=== PATIENT | female | born 1930 | race Caucasian/White ===

== ENCOUNTER → 2017-04-23 | Outpatient (CLI) | payer MEDICARE, BC ==
--- NOTE | 2017-04-23 16:01 | NM ---
EXAMINATION TYPE: NM bone scan whole body DATE OF EXAM: 04/23/2017 COMPARISON: Outside lumbar radiographs 04/18/2017 HISTORY: 86-year-old female with low back pain. Technique: Delayed whole-body scanning was performed following the injection of 25.5 mCi Tc 99m MDP. Images acquired 3 hours post injection. FINDINGS: There is tqmw-vj-pcdxscsi increased uptake involving the L1, L2, L3, and L4 vertebral bodies best see n on the posterior projections. Some focal increased activity involving the left posterior elements w ithin the upper cervical spine. There is a levoconvex scoliosis of the lumbar spine. No suspicious ac cumulation of radiotracer to suggest osseous metastatic disease. IMPRESSION: There is somx-tk-xywkzeca increased activity involving the L1, L2, L3, and L4 vertebral bodies sugges ting probable subacute compression injuries.
== END | disposition home or self-care (01) ==
LOC: RADNMMAIN 10:55
PROVIDERS: ATTEND Physical Medicine & Rehabilitation
DX: M48.8X6 Other specified spondylopathies, lumbar region (principal)
CPT/HCPCS: 78306; A9503

== ENCOUNTER → 2017-04-24 | Outpatient (CLI) | payer MEDICARE, BC ==
--- NOTE | 2017-04-24 08:19 | US ---
EXAMINATION TYPE: US duplex aorta DATE OF EXAM: 04/24/2017 COMPARISON: NONE CLINICAL HISTORY: I70.0 Atherosclerosis of aorta. Patient stated is a smoker and has been constipated for 8 days. EXAM MEASUREMENTS: Abdominal Aorta: primarily scanned aorta with patient in RLD position Proximal: 2.4cm Transverse Mid: 2.6cm Transverse Distal: 2.3cm A/P Bifurcation: not seen due to overlying bowel gas with history of recent constipation Aorta size is wnl, but intimal wall thickening is noted throughout. There is atheromatous irregularity of the aorta but no aneurysm is seen. IMPRESSION: NO EVIDENCE OF ABDOMINAL AORTIC ANEURYSM AT THIS TIME.
== END ==
LOC: RADUSWWP 07:03
PROVIDERS: ATTEND Family Medicine
DX: I70.0 Atherosclerosis of aorta (principal)
CPT/HCPCS: 93979

== ENCOUNTER 2018-04-02 14:14 | Observation (INO) | payer BC, MEDICARE ==
[2018-04-02] MEDS ORDERED: NITROGLYCERIN OINT 1 INCH/GM PACKET TOPICAL STA (14:33)
[2018-04-02] MEDS ORDERED: ASPIRIN 81 MG PO STA (14:33)
--- NOTE | 2018-04-02 14:36 | ED ---
General Adult HPI - General Chief complaint: Chest Pain Stated complaint: Heartburn/dizzy Time Seen by Provider: 04/02/18 14:15 Source: patient, RN notes reviewed Mode of arrival: wheelchair Limitations: no limitations - History of Present Illness Initial comments: This is a 87-year-old female presents emergency Department complaining of chest pain difficult to chest pain she felt 20 years ago when she had a heart attack and angioplasty. Patient states the pain came on and she became short of breath and diaphoretic. Patient also states she was somewhat dizzy. Patient denies any nausea. Patient denies any radiation of the pain. Patient denies any abdominal pain patient denies any vomiting or diarrhea. Patient denies any recent fever chills or cough. Patient denies headache patient denies numbness weakness. Patient denies any lightheadedness dizziness or near syncopal episode. - Related Data Home Medications Medication Instructions Recorded Confirmed Acetaminophen [Tylenol] 500 mg PO Q4-6H PRN 04/02/18 04/02/18 Aspirin EC [Ecotrin Low Dose] 81 mg PO DAILY 04/02/18 04/02/18 Atorvastatin [Lipitor] 80 mg PO DAILY 04/02/18 04/02/18 Fluticasone/Salmeterol [Advair 1 inhalation PO BID 04/02/18 04/02/18 500-50 Diskus] Furosemide [Lasix] 40 mg PO DAILY 04/02/18 04/02/18 Halobetasol Propionate 1 applic TOPICAL BID PRN 04/02/18 04/02/18 Levothyroxine Sodium [Synthroid] 112 mcg PO DAILY 04/02/18 04/02/18 Losartan Potassium 100 mg PO DAILY 04/02/18 04/02/18 Potassium Chloride [Klor-Con 10 meq PO DAILY 04/02/18 04/02/18 Sprinkle] Allergies Allergy/AdvReac Type Severity Reaction Status Date / Time cephalexin [From Keflex] Allergy Unknown Verified 04/02/18 15:01 Review of Systems ROS Statement: Those systems with pertinent positive or pertinent negative responses have been documented in the HPI. ROS Other: All systems not noted in ROS Statement are negative. Past Medical History Past Medical History: Cancer, Heart Failure, COPD, Myocardial Infarction ([place]), Osteoarthritis (OA) Additional Past Medical History / Comment(s): compression fractures thyroid ca History of Any Multi-Drug Resistant Organisms: None Reported Past Surgical History: Heart Catheterization, Heart Catheterization With Stent Additional Past Surgical History / Comment(s): thyroidectomy Past Psychological History: No Psychological Hx Reported Smoking Status: Current every day smoker Past Alcohol Use History: None Reported, Rare Past Drug Use History: None Reported General Exam - General Exam Comments Initial Comments: GENERAL: Patient is well-developed and well-nourished. Patient is nontoxic and well- hydrated and is in mild distress. ENT: Neck is soft and supple. No significant lymphadenopathy is noted. Oropharynx is clear. Moist mucous membranes. Neck has full range of motion without eliciting any pain. EYES: The sclera were anicteric and conjunctiva were pink and moist. Extraocular movements were intact and pupils were equal round and reactive to light. Eyelids were unremarkable. PULMONARY: Unlabored respirations. Good breath sounds bilaterally. No audible rales rhonchi or wheezing was noted. CARDIOVASCULAR: There is a regular rate and rhythm without any murmurs gallops or rubs. ABDOMEN: Soft and nontender with normal bowel sounds. No palpable organomegaly was noted. There is no palpable pulsatile mass. SKIN: Skin is clear with no lesions or rashes and otherwise unremarkable. NEUROLOGIC: Patient is alert and oriented x3. Cranial nerves II through XII are grossly intact. Motor and sensory are also intact. Normal speech, volume and content. Symmetrical smile. MUSCULOSKELETAL: Normal extremities with adequate strength and full range of motion. No lower extremity swelling or edema. No calf tenderness. LYMPHATICS: No significant lymphadenopathy is noted PSYCHIATRIC: Normal psychiatric evaluation. Normal interpersonal interactions appears functionally intact in deals appropriately with others. No signs of depression. No signs of anxiety. Limitations: no limitations Course Vital Signs 04/02/18 04/02/18 14:17 15:56 Temperature 97.9 F Pulse Rate 64 73 Respiratory 18 16 Rate Blood Pressure 162/75 134/61 O2 Sat by Pulse 92 L 97 Oximetry Medical Decision Making - Medical Decision Making EKG shows a normal sinus rhythm at 63 bpm IN interval is 168 QRSs 80 QT interval is 454 QTC is 464. Patient's EKG shows no ST segment elevation or depression or T wave abnormalities are noted Chest x-ray shows no acute abnormality. Patient was given heparin because of the unstable angina picture the similarities to her previous heart attack. I spoke with Dr. Mcclure and she agreed to admit the patient admitted the patient I continued heparin and aspirin and Nitropaste on the floor. I consult to cardiology and I wrote admitting orders. - Lab Data Result diagrams: 04/02/18 14:43 04/02/18 14:43 Lab Results 04/02/18 04/02/18 04/02/18 Range/Units 14:43 14:43 14:43 WBC 9.1 (3.8-10.6) k/uL RBC 4.60 (3.80-5.40) m/uL Hgb 10.9 L (11.4-16.0) gm/dL Hct 36.0 (34.0-46.0) % MCV 78.2 L (80.0-100.0) fL MCH 23.8 L (25.0-35.0) pg MCHC 30.4 L (31.0-37.0) g/dL RDW 16.8 H (11.5-15.5) % Plt Count 309 (150-450) k/uL Neutrophils % 86 % Lymphocytes % 8 % Monocytes % 4 % Eosinophils % 1 % Basophils % 0 % Neutrophils # 7.9 H (1.3-7.7) k/uL Lymphocytes # 0.7 L (1.0-4.8) k/uL Monocytes # 0.3 (0-1.0) k/uL Eosinophils # 0.1 (0-0.7) k/uL Basophils # 0.0 (0-0.2) k/uL Hypochromasia Marked Anisocytosis Slight Microcytosis Slight PT (9.0-12.0) sec INR (<1.2) APTT (22.0-30.0) sec Sodium 138 (137-145) mmol/L Potassium 4.0 (3.5-5.1) mmol/L Chloride 100 (98-107) mmol/L Carbon Dioxide 27 (22-30) mmol/L Anion Gap 11 mmol/L BUN 16 (7-17) mg/dL Creatinine 0.64 (0.52-1.04) mg/dL Est GFR (CKD-EPI)AfAm >90 (>60 ml/min/1.73 sqM) Est GFR (CKD-EPI)NonAf 81 (>60 ml/min/1.73 sqM) Glucose 110 H (74-99) mg/dL Calcium 8.7 (8.4-10.2) mg/dL Magnesium 2.1 (1.6-2.3) mg/dL Total Bilirubin 0.8 (0.2-1.3) mg/dL AST 43 H (14-36) U/L ALT 38 (9-52) U/L Alkaline Phosphatase 68 (38-126) U/L Total Creatine Kinase 71 (30-135) U/L CK-MB (CK-2) 1.9 (0.0-2.4) ng/mL CK-MB (CK-2) Rel Index 2.7 Troponin I <0.012 (0.000-0.034) ng/mL Total Protein 6.8 (6.3-8.2) g/dL Albumin 4.1 (3.5-5.0) g/dL /04/14 Range/Units 14:43 WBC (3.8-10.6) k/uL RBC (3.80-5.40) m/uL Hgb (11.4-16.0) gm/dL Hct (34.0-46.0) % MCV (80.0-100.0) fL MCH (25.0-35.0) pg MCHC (31.0-37.0) g/dL RDW (11.5-15.5) % Plt Count (150-450) k/uL Neutrophils % % Lymphocytes % % Monocytes % % Eosinophils % % Basophils % % Neutrophils # (1.3-7.7) k/uL Lymphocytes # (1.0-4.8) k/uL Monocytes # (0-1.0) k/uL Eosinophils # (0-0.7) k/uL Basophils # (0-0.2) k/uL Hypochromasia Anisocytosis Microcytosis PT 11.2 (9.0-12.0) sec INR 1.2 H (<1.2) APTT 22.1 (22.0-30.0) sec Sodium (137-145) mmol/L Potassium (3.5-5.1) mmol/L Chloride (98-107) mmol/L Carbon Dioxide (22-30) mmol/L Anion Gap mmol/L BUN (7-17) mg/dL Creatinine (0.52-1.04) mg/dL Est GFR (CKD-EPI)AfAm (>60 ml/min/1.73 sqM) Est GFR (CKD-EPI)NonAf (>60 ml/min/1.73 sqM) Glucose (74-99) mg/dL Calcium (8.4-10.2) mg/dL Magnesium (1.6-2.3) mg/dL Total Bilirubin (0.2-1.3) mg/dL AST (14-36) U/L ALT (9-52) U/L Alkaline Phosphatase (38-126) U/L Total Creatine Kinase (30-135) U/L CK-MB (CK-2) (0.0-2.4) ng/mL CK-MB (CK-2) Rel Index Troponin I (0.000-0.034) ng/mL Total Protein (6.3-8.2) g/dL Albumin (3.5-5.0) g/dL Critical Care Time Critical Care Time: Yes Total Critical Care Time: 35 Disposition Clinical Impression: Unstable angina pectoris Disposition: ADMITTED IP TO THIS HOSP Referrals: Winston Spring MD [Primary Care Provider] - 1-2 days Time of Disposition: 16:02
--- NOTE | 2018-04-02 15:03 | XR ---
EXAMINATION TYPE: XR chest 2V DATE OF EXAM: 04/02/2018 COMPARISON: NONE HISTORY: Shortness of breath TECHNIQUE: Frontal and lateral views of the chest are obtained. FINDINGS: Scattered senescent parenchymal changes noted. Hyperinflation compatible with COPD. No evidence for infiltrate. No evidence for atelectasis. Heart size is stable. Mediastinal structures are stable and grossly unremarkable. Small fixed hiatal hernia. No evidence for hilar prominence. Degenerative changes dorsal spine. IMPRESSION: 1. No evidence for acute pulmonary disease.
[2018-04-02 15:05] LABS: Anisocytosis Slight; Basophils % (A) 0 %; Eosinophils # (A) 0.1 k/uL (0-0.7); Eosinophils % (A) 1 %; HGB 10.9 gm/dL (11.4-16.0); Hypochromasia Marked; Lymphocytes # (A) 0.7 k/uL (1.0-4.8); Lymphocytes % (A) 8 %; MCH 23.8 pg (25.0-35.0); MCHC 30.4 g/dL (31.0-37.0); MCV 78.2 fL (80.0-100.0); Mean Platelet Volume 7.6; Microcytosis Slight; Monocytes # (A) 0.3 k/uL (0-1.0); Monocytes % (A) 4 %; Neutrophils # (A) 7.9 k/uL (1.3-7.7); Neutrophils % (A) 86 %; Platelet Count 309 k/uL (150-450); RDW 16.8 % (11.5-15.5); WBC 9.1 k/uL (3.8-10.6)
[2018-04-02 15:21] LABS: ALT 38 U/L (9-52); AST 43 U/L (14-36); Albumin 4.1 g/dL (3.5-5.0); Alkaline Phosphatase 68 U/L (38-126); Anion Gap 11 mmol/L; Blood Urea Nitrogen 16 mg/dL (7-17); Calcium 8.7 mg/dL (8.4-10.2); Carbon Dioxide 27 mmol/L (22-30); Chloride 100 mmol/L (98-107); Glucose 110 mg/dL (74-99); Magnesium 2.1 mg/dL (1.6-2.3); Sodium 138 mmol/L (137-145); Total Bilirubin 0.8 mg/dL (0.2-1.3); Total Protein 6.8 g/dL (6.3-8.2)
[2018-04-02 15:24] LABS: Creatine Kinase 71 U/L (30-135)
[2018-04-02 15:25] LABS: INR 1.2 (<1.2); Partial Thromboplastin Time 22.1 sec (22.0-30.0); Prothrombin Time 11.2 sec (9.0-12.0)
[2018-04-02 15:37] LABS: Creatine Kinase MB 1.9 ng/mL (0.0-2.4); Troponin I <0.012 ng/mL (0.000-0.034)
[2018-04-02] MEDS ORDERED: HEPARIN SODIUM,PORCINE 5,000 UNIT/ML 1 ML VIAL IV ONE (16:00)
[2018-04-02] MEDS ORDERED: NITROGLYCERIN SL TABS 0.4 MG TAB SUBLINGUAL PRN (16:02)
[2018-04-02] MEDS ORDERED: HEPARIN SODIUM,PORCINE/D5W PMX 25,000 UNIT in DEXTROSE/WATER 1 500ML.BAG IV SCH (16:15)
[2018-04-02] MEDS ORDERED: ACETAMINOPHEN TAB 500 MG TAB PO PRN (18:23)
[2018-04-02] MEDS: SYMBICORT 160-4.5 MCG INHALER INHALATION SCH (18:54)
[2018-04-02] MEDS: NITROGLYCERIN OINT 1 INCH/GM PACKET TOPICAL SCH ×2 (19:02→23:07)
[2018-04-02 22:47] LABS: Creatine Kinase 57 U/L (30-135)
[2018-04-02 23:02] LABS: Creatine Kinase MB 1.6 ng/mL (0.0-2.4); Troponin I <0.012 ng/mL (0.000-0.034)
[2018-04-03] MEDS: NITROGLYCERIN OINT 1 INCH/GM PACKET TOPICAL SCH (04:10)
[2018-04-03 04:54] LABS: Cholesterol 126 mg/dL (<200); HDL Cholesterol 63 mg/dL (40-60); LDL Cholesterol,Calculated 55 mg/dL (0-99); Triglycerides 40 mg/dL (<150)
[2018-04-03 05:03] LABS: Creatine Kinase 59 U/L (30-135)
[2018-04-03 05:16] LABS: Creatine Kinase MB 1.8 ng/mL (0.0-2.4); Troponin I <0.012 ng/mL (0.000-0.034)
[2018-04-03] MEDS ORDERED: LEVOTHYROXINE 112 MCG TAB PO SCH (06:30)
[2018-04-03] MEDS: SYMBICORT 160-4.5 MCG INHALER INHALATION SCH (07:22)
[2018-04-03 07:51] VITALS: TEMP 97.6
[2018-04-03] MEDS ORDERED: ASPIRIN 325 MG TAB PO SCH (09:00)
[2018-04-03] MEDS ORDERED: ATORVASTATIN 80 MG TAB PO SCH (09:00)
[2018-04-03] MEDS ORDERED: FUROSEMIDE 40 MG TAB PO SCH (09:00)
[2018-04-03] MEDS ORDERED: POTASSIUM CHLORIDE ER 10 MEQ TAB.ER.PRT PO SCH (09:00)
[2018-04-03] MEDS ORDERED: ASPIRIN 81 MG PO SCH (09:00)
[2018-04-03] MEDS ORDERED: LOSARTAN 50 MG TAB PO SCH (09:00)
[2018-04-03] MEDS ORDERED: DOBUTamine DRIP for NUC MED 500 MG in DEXTROSE/WATER 1 250ML.BAG IV ONE (10:23)
--- NOTE | 2018-04-03 10:46 | P.CRDCN ---
History of Present Illness History of present illness: Mrs. Lemus is a pleasant 87-year-old female past medical history significant for coronary artery disease s/p angioplasty 20 years ago, those details are unavailable. She also has COPD, hypertension, dyslipidemia, hypothyroid and chronic tobacco dependence. We have been asked to see her in consultation for chest pain. She states yesterday after eating lunch she sat down to watch television and became acutely dizzy and diaphoretic. Shortly thereafter, she started with a pressure in the mid-sternal/epigastric region. Denies radiation down the arm, into the back, neck or jaw. Denies shortness of breath, nausea, vomiting or palpitations. These symptoms persisted for 2 hours. She also has a chronic cough that has not changed at all recently in nature. She denies PND or orhopnea as well. EKG reveals sinus mechanism with no acute ST or T-wave abnormality. Chest xray is negative for an acute cardiopulmonary process. Laboratory data reviewed, hemoglobin 10.9, platelets 309, sodium 138, potassium 4.0, magnesium 2.1, creatinine 0.64, cardiac enzymes negative 3, LDL 55, HDL 63. Current cardiac medications include Lasix 40 mg daily, atorvastatin 80 mg daily , aspirin 81 mg daily and losartan 100 mg daily. She also takes Advair, Synthroid and potassium supplementation. There are no old cardiac records to review. Past Medical History Past Medical History: Cancer, Heart Failure, COPD, Hyperlipidemia, Myocardial Infarction ([place]), Osteoarthritis (OA) Additional Past Medical History / Comment(s): compression fractures , scoliosis thyroid ca ,upper dental bridge Last Myocardial Infarction Date:: unk History of Any Multi-Drug Resistant Organisms: None Reported Past Surgical History: Heart Catheterization, Heart Catheterization With Stent Additional Past Surgical History / Comment(s): thyroidectomy , cataracts, partial lt knee replacment,amy bunionectomy,lt breast bx-neg Past Anesthesia/Blood Transfusion Reactions: No Reported Reaction Date of Last Stent Placement:: unk Smoking Status: Current every day smoker - Past Family History Mother Family Medical History: Coronary Artery Disease (CAD) Additional Family Medical History / Comment(s): 10 days after open heart surgury Father Additional Family Medical History / Comment(s): from black lung, worked in foundry Brother(s) Family Medical History: Myocardial Infarction ([place]) Additional Family Medical History / Comment(s): 3 brothers had mi' cad and 1 had open heart Medications and Allergies Home Medications Medication Instructions Recorded Confirmed Type Acetaminophen [Tylenol] 500 mg PO Q4-6H PRN 04/02/18 04/02/18 History Aspirin EC [Ecotrin Low Dose] 81 mg PO DAILY 04/02/18 04/02/18 History Atorvastatin [Lipitor] 80 mg PO DAILY 04/02/18 04/02/18 History Fluticasone/Salmeterol [Advair 1 inhalation PO BID 04/02/18 04/02/18 History 500-50 Diskus] Furosemide [Lasix] 40 mg PO DAILY 04/02/18 04/02/18 History Halobetasol Propionate 1 applic TOPICAL BID PRN 04/02/18 04/02/18 History Levothyroxine Sodium [Synthroid] 112 mcg PO DAILY 04/02/18 04/02/18 History Losartan Potassium 100 mg PO DAILY 04/02/18 04/02/18 History Potassium Chloride [Klor-Con 10 meq PO DAILY 04/02/18 04/02/18 History Sprinkle] Allergies Allergy/AdvReac Type Severity Reaction Status Date / Time cephalexin [From Keflex] Allergy Unknown Verified 04/02/18 19:37 Physical Exam Vitals: Vital Signs Temp Pulse Pulse Resp BP BP Pulse Ox 04/03/18 07:49 97.6 F 68 16 173/80 92 L 04/03/18 07:22 94 L 04/03/18 03:51 98.2 F 64 16 142/67 95 04/03/18 03:33 16 04/02/18 23:32 97.9 F 65 16 108/53 91 L 04/02/18 23:19 16 04/02/18 20:00 16 04/02/18 19:46 97.9 F 73 16 104/57 92 L 04/02/18 17:20 97.5 F L 75 18 135/68 04/02/18 15:56 73 16 134/61 97 04/02/18 14:17 97.9 F 64 18 162/75 92 L Intake and Output 04/02/18 04/03/18 04/03/18 22:59 06:59 14:59 Intake Total 215.689 115.425 Balance 215.689 115.425 Intake: Intake, IV Titration 97.689 115.425 Amount Heparin Sodium,Porcine/ 97.689 115.425 D5w Pmx 25,000 unit In Dextrose/Water 1 500ml. bag @ 12 UNITS/KG/HR 14. 69 mls/hr IV .Q24H BILL Rx #:[id number] Oral 118 Other: # Voids 1 Weight 60.6 kg Blood pressure 173/80 heart rate 68 afebrile maintaining oxygen saturation on room air GENERAL: This is a 87-year-old female in no apparent distress at the time of my examination. Frail. HEENT: Head is atraumatic, normocephalic. Pupils are equal, round. Sclerae anicteric. Conjunctivae are clear. Mucous membranes of the mouth are moist. Neck is supple. There is no jugular venous distention. No carotid bruit is heard. LUNGS: Course bibasliar raltes. No wheezes or rhonchi. No chest wall tenderness is noted on palpation or with deep breathing. HEART: Regular rate and rhythm with murmur noted, no rubs or gallops. S1 and S2 heard. ABDOMEN: Soft, nontender. Bowel sounds are heard. No organomegaly noted. EXTREMITIES: No evidence of peripheral edema and no calf tenderness noted. VASCULAR: Radial and dorsalis pedis pulses palpated, no evidence of clubbing. NEUROLOGIC: Patient is awake, alert and oriented x3. Results 04/02/18 14:43 04/02/18 14:43 Cardiac Enzymes 04/02/18 04/02/18 04/02/18 Range/Units 14:43 14:43 21:55 AST 43 H (14-36) U/L CK-MB (CK-2) 1.9 1.6 (0.0-2.4) ng/mL Troponin I <0.012 <0.012 (0.000-0.034) ng/mL 04/03/18 Range/Units 04:02 AST (14-36) U/L CK-MB (CK-2) 1.8 (0.0-2.4) ng/mL Troponin I <0.012 (0.000-0.034) ng/mL Coagulation 18 18 04/03/18 Range/Units 14:43 21:55 04:02 PT 11.2 (9.0-12.0) sec APTT 22.1 26.2 29.2 (22.0-30.0) sec Lipids 04/03/18 Range/Units 04:02 Triglycerides 40 (<150) mg/dL Cholesterol 126 (<200) mg/dL HDL Cholesterol 63 H (40-60) mg/dL CBC 04/02/18 Range/Units 14:43 WBC 9.1 (3.8-10.6) k/uL RBC 4.60 (3.80-5.40) m/uL Hgb 10.9 L (11.4-16.0) gm/dL Hct 36.0 (34.0-46.0) % Plt Count 309 (150-450) k/uL Comprehensive Metabolic Panel 04/02/18 Range/Units 14:43 Sodium 138 (137-145) mmol/L Potassium 4.0 (3.5-5.1) mmol/L Chloride 100 (98-107) mmol/L Carbon Dioxide 27 (22-30) mmol/L BUN 16 (7-17) mg/dL Creatinine 0.64 (0.52-1.04) mg/dL Glucose 110 H (74-99) mg/dL Calcium 8.7 (8.4-10.2) mg/dL AST 43 H (14-36) U/L ALT 38 (9-52) U/L Alkaline Phosphatase 68 (38-126) U/L Total Protein 6.8 (6.3-8.2) g/dL Albumin 4.1 (3.5-5.0) g/dL Current Medications Generic Name Dose Route Start Last Admin Trade Name Freq PRN Reason Stop Dose Admin Acetaminophen 500 mg 04/02/18 18:23 Tylenol Tab PO Q4H PRN Mild Pain Aspirin 325 mg 04/03/18 09:00 Aspirin PO DAILY BILL Atorvastatin Calcium 80 mg 04/03/18 09:00 Lipitor PO DAILY BILL Budesonide/Formoterol Fumarate 2 puff 04/02/18 20:00 04/03/18 07:22 Symbicort 160-4.5 Mcg Inhaler INHALATION 2 puff RT-BID BILL Administration Furosemide 40 mg 04/03/18 09:00 Lasix PO DAILY [facility] Heparin Sodium/Dextrose 25,000 500 mls @ 14.69 mls/hr 04/02/18 16:15 05:12 unit/ IV Solution IV 18 units/kg/hr .Q24H BILL 22.04 mls/hr Protocol Titration 12 UNITS/KG/HR Levothyroxine Sodium 112 mcg 04/03/18 06:30 04/03/18 04:14 Synthroid PO 112 mcg DAILY@0630 BILL Administration Losartan Potassium 100 mg 04/03/18 09:00 Cozaar PO DAILY BILL Nitroglycerin 1 inch 04/02/18 18:00 04/03/18 04:10 Nitro-Bid Oint TOPICAL Not Given Q6HR BILL Nitroglycerin 0.4 mg 04/02/18 16:02 Nitrostat SUBLINGUAL Q5M PRN Chest Pain Potassium Chloride 10 meq 04/03/18 09:00 K-Dur 10 PO DAILY BILL Intake and Output 04/02/18 04/03/18 04/03/18 22:59 06:59 14:59 Intake Total 215.689 115.425 Balance 215.689 115.425 Intake: Intake, IV Titration 97.689 115.425 Amount Heparin Sodium,Porcine/ 97.689 115.425 D5w Pmx 25,000 unit In Dextrose/Water 1 500ml. bag @ 12 UNITS/KG/HR 14. 69 mls/hr IV .Q24H BILL Rx #:[id number] Oral 118 Other: # Voids 1 Weight 60.6 kg 04/02/18 14:43 04/02/18 14:43 Assessment and Plan Assessment: ASSESSMENT 1. Chest pain with history of coronary artery disease. Details of heart catheterization unavailable. An acute coronary event has been ruled out with no EKG evidence of ischemia and negative cardiac enzymes. 2. Coronary artery disease s/p balloon angioplasty 20 years ago 3. COPD 4. Hypertension 5. Dyslipidemia 6. Chronic nicotine dependence PLAN Obtain 2D echocardiogram and doppler study to assess cardiac structure and function Check d-dimer. Perform dobutamine stress echocardiogram to assess for reversible cardiac ischemia. If stress test is normal she is stable from a cardiac perspective. If abnormal we will consider cardiac angiography. Thank you kindly for this consultation. Nurse Practitioner note has been reviewed, I agree with a documented findings and plan of care. Patient was seen and examined.
[2018-04-03 11:51] LABS: D-Dimer 0.59 mg/L FEU (<0.60); Partial Thromboplastin Time 22.3 sec (22.0-30.0)
--- NOTE | 2018-04-03 12:49 | ECHOF ---
Referral Reason:cp MEASUREMENTS -------- HEIGHT: 162.6 cm WEIGHT: 60.3 kg BP: IVSd: 1.4 cm (0.6 - 1.1) LVIDd: 4.7 cm (3.9 - 5.3) LVPWd: 0.9 cm (0.6 - 1.1) IVSs: 1.6 cm LVIDs: 4.3 cm LVPWs: 1.2 cm LAESV Index (A-L): 40.47 ml/m Ao Diam: 3.6 cm (2.0 - 3.7) AV Cusp: 1.5 cm (1.5 - 2.6) LA Diam: 4.2 cm (2.7 - 3.8) MV EXCURSION: 10.759 mm (> 18.000) MV EF SLOPE: 45 mm/s (70 - 150) EPSS: 1.3 cm MV E Rufino: 0.65 m/s MV DecT: 263 ms MV A Rufino: 1.08 m/s MV E/A Ratio: 0.61 AR PHT: 662 ms RAP: 20.00 mmHg RVSP: 60.74 mmHg FINDINGS -------- Sinus rhythm. This was a technically good study. The left ventricular size is normal. There is mild concentric left ventricular hypertrophy. Overa ll left ventricular systolic function is low-normal with, an EF between 50 - 55 %. The diastolic fi lling pattern is normal for the age of the patient 9.79. The right ventricle is normal in size. The left atrial size is normal. LA is severely dilated >40 ml/m2 The right atrial size is normal. There is mild aortic valve sclerosis. There is sanb-ig-dfnraejf aortic regurgitation. Mild mitral annular calcification present. Mild mitral regurgitation is present. Dqko-dr-ollbbxcg tricuspid regurgitation present. There is moderate pulmonary hypertension. The r ight ventricular systolic pressure, as measured by Doppler, is 60.74mmHg. There is no pulmonic regurgitation present. The aortic root size is normal. The inferior vena cava is dilated with poor inspiratory collapse which is consistent with estimated r ight atrial pressure of 20 mmHg. There is no pericardial effusion. CONCLUSIONS -------- 1. Sinus rhythm. 2. The left ventricular size is normal. 3. There is mild concentric left ventricular hypertrophy. 4. Overall left ventricular systolic function is low-normal with, an EF between 50 - 55 %. 5. The diastolic filling pattern is normal for the age of the patient 9.79 6. The right ventricle is normal in size. 7. The left atrial size is normal. 8. LA is severely dilated >40 ml/m2 9. The right atrial size is normal. 10. There is mild aortic valve sclerosis. 11. There is aqig-jv-uvpkuptm aortic regurgitation. 12. Mild mitral annular calcification present. 13. Mild mitral regurgitation is present. 14. Hoeo-zi-dfzexqfv tricuspid regurgitation present. 15. There is moderate pulmonary hypertension. 16. The right ventricular systolic pressure, as measured by Doppler, is 60.74mmHg. 17. There is no pulmonic regurgitation present. 18. The aortic root size is normal. 19. The inferior vena cava is dilated with poor inspiratory collapse which is consistent with estimat ed right atrial pressure of 20 mmHg. 20. There is no pericardial effusion. PHYSICAL THERAPIST CENTER MANAGER: Zuleyma White RDCS
[2018-04-03 13:27] VITALS: BP 142/58; PULSE 80; RESP 17
--- NOTE | 2018-04-03 14:14 | ECHOS ---
STRESS ECHOCARDIOGRAM INDICATIONS: Chest pain. BASELINE HEART RATE: 53 BASELINE BLOOD PRESSURE: 126/82 MAXIMUM HEART RATE: 115 MAXIMUM BLOOD PRESSURE: 173/95 85% MPHR: 114 100% MPHR: 134 MAXIMUM STAGE REACHED: III TOTAL EXERCISE TIME: 11:15 CLINICAL INFORMATION: Patient was given dobutamine infusion according to the standard protocol. Peak heart rate of 115 was achieved. Maximum blood pressure of 173/95 mmHg was noted. Patient did not complain of any chest pain during the test. Resting EKG shows normal sinus rhythm with normal AK interval and QRS duration and normal ST-T waves. Intermittent PACs were noted. No ST-segment depression suggestive of ischemia is noted. Occasional PVCs were noted. The baseline echocardiographic images reveal normal left ventricular chamber size with normal left ventricular systolic function at the peak dose of dobutamine infusion. Normal increase in the wall thickness and contractility is noted. FINAL IMPRESSION: 1. This stress echocardiographic study is negative for stress-induced ischemia. 2. Occasional premature atrial contractions and premature ventricular contractions were noted. MMODL / IJN: [id number] /
--- NOTE | 2018-04-04 08:03 | P.HPIM ---
History of Present Illness H&P Date: 04/03/18 Chief Complaint: Chest pain This is an 87-year-old female patient of Dr. Winston Spring with past medical history for COPD, tobacco use and dependence, hyperlipidemia, previous myocardial infarction with coronary artery disease status post angioplasty 20 years ago, hypertension, thyroid cancer, scoliosis, osteoarthritis, compression fractures of the spinal column. Patient complains of dizziness and developed chest pain to the low sternal area that lasted about 2 hours and she decided to come into [facility] emergency center for evaluation. She denies any trouble swallowing or eating. She does have a cough which is chronic. Her shellfish shucker is Dr. No. She always has sputum production. Patient denies any radiation of the pain to her arm or neck or jaw. No shortness of breath, nausea, vomiting or palpitations. Her EKG showed no acute ST-T wave changes. Her hemoglobin was at 10.9 which seems to be her baseline, creatinine 0.64. Troponins are negative on 3 draws. LDH 55, HDL 63. Patient was placed on the observation unit and seen in consultation by cardiology. She is status post dobutamine stress test and this was negative. Patient was cleared by cardiology for discharge home. Echocardiogram reveals EF of 50-55% with mild concentric left ventricular hypertrophy, LA severely dilated at greater than 40, mild aortic valve sclerosis, moderate aortic regurgitation, mild mitral regurgitation, moderate tricuspid regurgitation, moderate pulmonary hypertension. Patient will be discharged home today in stable condition.chest x-ray shows no evidence of acute pulmonary disease. Hyperinflation compatible with COPD. No evidence of infiltrate or atelectasis. Discharge Medication List Acetaminophen [Tylenol] 500 mg PO Q4-6H PRN 04/02/18 [History] Aspirin EC [Ecotrin Low Dose] 81 mg PO DAILY 04/02/18 [History] Atorvastatin [Lipitor] 80 mg PO DAILY 04/02/18 [History] Fluticasone/Salmeterol [Advair 500-50 Diskus] 1 inhalation PO BID 04/02/18 [ History] Furosemide [Lasix] 40 mg PO DAILY 04/02/18 [History] Halobetasol Propionate 1 applic TOPICAL BID PRN 04/02/18 [History] Levothyroxine Sodium [Synthroid] 112 mcg PO DAILY 04/02/18 [History] Losartan Potassium 100 mg PO DAILY 04/02/18 [History] Potassium Chloride [Klor-Con Sprinkle] 10 meq PO DAILY 04/02/18 [History] Review of Systems All systems: negative Constitutional: Denies anorexia, Denies chills, Denies fatigue, Denies fever, Denies poor appetite, Denies weakness, Denies weight loss Eyes: denies blurred vision, denies pain Ears, nose, mouth and throat: Reports vertigo, Denies dysphagia, Denies headache , Denies sore throat Cardiovascular: Denies chest pain, Denies decreased exercise tolerance, Denies dyspnea on exertion, Denies irregular heart beat, Denies leg edema, Denies lightheadedness, Denies paroxysmal nocturnal dyspnea, Denies shortness of breath , Denies syncope Respiratory: Denies cough, Denies cough with sputum, Denies dyspnea, Denies excessive sputum, Denies hemoptysis, Denies home oxygen, Denies wheezing Gastrointestinal: Denies abdominal pain, Denies diarrhea, Denies loss of appetite, Denies nausea, Denies vomiting Genitourinary: Denies dysuria, Denies hematuria, Denies urgency, Denies urinary frequency Musculoskeletal: Denies myalgias Integumentary: Denies pruritus, Denies rash, Denies wounds Neurological: Denies confusion, Denies convulsions, Denies double vision, Denies gait dysfunction, Denies numbness, Denies weakness Psychiatric: Denies anxiety, Denies depression Endocrine: Denies fatigue, Denies weight change Past Medical History Past Medical History: Coronary Artery Disease (CAD), Cancer, COPD, Hyperlipidemia, Myocardial Infarction ([place]), Osteoarthritis (OA) Additional Past Medical History / Comment(s): compression fractures , scoliosis thyroid ca ,upper dental bridge Last Myocardial Infarction Date:: unk History of Any Multi-Drug Resistant Organisms: None Reported Past Surgical History: Heart Catheterization, Heart Catheterization With Stent Additional Past Surgical History / Comment(s): thyroidectomy , cataracts, partial lt knee replacment,amy bunionectomy,lt breast bx-neg Past Anesthesia/Blood Transfusion Reactions: No Reported Reaction Date of Last Stent Placement:: unk Smoking Status: Current every day smoker Additional Past Alcohol Use History / Comment(s): Patient started smoking at age 18 and was smoking 1 pack per day and currently down to half a pack per day. She denies any marijuana or street drug use. She is a since 2013. Patient's grandson lives with her. She has a cane and walker if needed as well as a life alert. - Past Family History Mother Family Medical History: Coronary Artery Disease (CAD) Additional Family Medical History / Comment(s): 10 days after open heart surgury Father Family Medical History: COPD Additional Family Medical History / Comment(s): from black lung, worked in [employer] Brother(s) Family Medical History: Myocardial Infarction ([place]) Additional Family Medical History / Comment(s): 3 brothers had mi' cad and 1 had open heart Sister(s) Family Medical History: Coronary Artery Disease (CAD) Medications and Allergies Home Medications Medication Instructions Recorded Confirmed Type Acetaminophen [Tylenol] 500 mg PO Q4-6H PRN 04/02/18 04/02/18 History Aspirin EC [Ecotrin Low Dose] 81 mg PO DAILY 04/02/18 04/02/18 History Atorvastatin [Lipitor] 80 mg PO DAILY 04/02/18 04/02/18 History Fluticasone/Salmeterol [Advair 1 inhalation PO BID 04/02/18 04/02/18 History 500-50 Diskus] Furosemide [Lasix] 40 mg PO DAILY 04/02/18 04/02/18 History Halobetasol Propionate 1 applic TOPICAL BID PRN 04/02/18 04/02/18 History Levothyroxine Sodium [Synthroid] 112 mcg PO DAILY 04/02/18 04/02/18 History Losartan Potassium 100 mg PO DAILY 04/02/18 04/02/18 History Potassium Chloride [Klor-Con 10 meq PO DAILY 04/02/18 04/02/18 History Sprinkle] Allergies Allergy/AdvReac Type Severity Reaction Status Date / Time cephalexin [From Keflex] Allergy Unknown Verified 04/02/18 19:37 Physical Exam Vitals: Vital Signs Temp Pulse Pulse Resp BP BP Pulse Ox 04/03/18 12:20 80 17 142/58 91 L 04/03/18 07:49 97.6 F 68 16 173/80 92 L 04/03/18 07:22 94 L 04/03/18 03:51 98.2 F 64 16 142/67 95 04/03/18 03:33 16 04/02/18 23:32 97.9 F 65 16 108/53 91 L 04/02/18 23:19 16 04/02/18 20:00 16 04/02/18 19:46 97.9 F 73 16 104/57 92 L 04/02/18 17:20 97.5 F L 75 18 135/68 04/02/18 15:56 73 16 134/61 97 Intake and Output 04/03/18 04/03/18 04/03/18 06:59 14:59 22:59 Intake Total 115.425 Balance 115.425 Intake: Intake, IV Titration 115.425 Amount Heparin Sodium,Porcine/ 115.425 D5w Pmx 25,000 unit In Dextrose/Water 1 500ml. bag @ 12 UNITS/KG/HR 14. 69 mls/hr IV .Q24H BILL Rx #:[id number] Other: Voiding Method Toilet # Voids 1 Gen: This is an 87-year-old female. She is sitting up in the adjuvant bed eating her lunch and appears to be in no acute distress. HEENT: Head is atraumatic, normocephalic. Pupils equal, round. Sclerae is anicteric. conjunctiva pink. Mucous members of the mouth are moist. Dentition is in good order. NECK: Supple. No JVD. No lymphadenopathy. No thyromegaly. LUNGS: Clear to auscultation. No wheezes or rhonchi. No intercostal retractions.no chest wall tenderness. HEART: Regular rate and rhythm. No murmur. ABDOMEN: Soft. Bowel sounds are present. No masses. No tenderness. EXTREMITIES: No pedal edema. No calf tenderness. NEUROLOGICAL: Patient is awake, alert and oriented x3. Cranial nerves 2 through 12 are grossly intact. Results CBC & Chem 7: 04/02/18 14:43 04/02/18 14:43 Labs: Abnormal Lab Results - Last 24 Hours (Table) 04/02/18 04/02/18 04/03/18 Range/Units 14:43 14:43 04:02 INR 1.2 H (<1.2) Glucose 110 H (74-99) mg/dL AST 43 H (14-36) U/L HDL Cholesterol 63 H (40-60) mg/dL Thrombosis Risk Factor Assmnt - DVT/VTE Prophylaxis DVT/VTE Prophylaxis: Pharmacologic Prophylaxis ordered - Choose All That Apply Each Risk Factor Represents 3 Points: Age 75 years or older Thrombosis Risk Factor Assessment Total Risk Factor Score: 3 Thrombosis Risk Factor Assessment Level: Moderate Risk Assessment and Plan Plan: 1.chest pain. Acute coronary syndrome has been ruled out.dobutamine stress test is negative. Cardiology consult is appreciated.patient is to continue on low-dose aspirin, atorvastatin. 2. COPD with chronic bronchitis, not in exacerbation. Recommend patient have outpatient CAT scan of the chest done. continue Advair. 3. Hypertension. Continue Lasix 40 mg daily, losartan 100 mg daily. 4. Hyperlipidemia.continue atorvastatin. 5. Hypothyroidism. Continue levothyroxine at 112 g daily. Patient placed as observation status. Discharge plan: home Impression and plan of care have been directed as dictated by the signing physician. Linda Mcneil nurse practitioner acting as scribe for signing physician.
== END 2018-04-03 14:27 | disposition home or self-care (01) ==
LOC: EC 14:14 → SUPCPDRO 14:14 → 3OBS 16:02
PROVIDERS: ADMIT Family Medicine; ATTEND Family Medicine
DX: R07.89 Other chest pain (principal); I25.10 Atherosclerotic heart disease of native coronary artery without angina pectoris; I11.0 Hypertensive heart disease with heart failure; I50.9 Heart failure, unspecified; Z95.5 Presence of coronary angioplasty implant and graft; J44.9 Chronic obstructive pulmonary disease, unspecified; E89.0 Postprocedural hypothyroidism; E78.5 Hyperlipidemia, unspecified; M19.90 Unspecified osteoarthritis, unspecified site; I27.20 Pulmonary hypertension, unspecified; I08.3 Combined rheumatic disorders of mitral, aortic and tricuspid valves; M41.9 Scoliosis, unspecified; F17.210 Nicotine dependence, cigarettes, uncomplicated; Z79.82 Long term (current) use of aspirin; Z79.890 Hormone replacement therapy; Z79.51 Long term (current) use of inhaled steroids; Z79.899 Other long term (current) drug therapy; Z88.1 Allergy status to other antibiotic agents; I25.2 Old myocardial infarction; Z85.850 Personal history of malignant neoplasm of thyroid; Z87.81 Personal history of (healed) traumatic fracture; Z96.652 Presence of left artificial knee joint; Z82.49 Family history of ischemic heart disease and other diseases of the circulatory system; Z83.6 Family history of other diseases of the respiratory system
CPT/HCPCS: 99291 ×2; 96365 ×2; 96376 ×2; 96366 ×2; 36415; 94640 ×2; 94760; 93005; 93306; 93351; 85379; 83880; 80061; 80053; 82550 ×2; 82553 ×2; 83735; 84484 ×2; 85025; 85610; 85730 ×2; 71046; G0378 ×2; J1250; J1644 ×2